=== PATIENT | male | born 1950 | race Caucasian/White ===

== ENCOUNTER 2018-02-26 11:41 | Emergency (ER) | payer MEDICARE, BC, SELFPAY ==
[2018-02-26 11:44] VITALS: BP 150/83; PULSE 91; RESP 16; TEMP 36.8; O2SAT 95; BMI 37.4
--- NOTE | 2018-02-26 11:51 | CT_ITS ---
STUDY: CT ABDOMEN AND PELVIS WITH CONTRAST REASON FOR EXAM: Male, 67 years old. Bilateral flank pain RADIATION DOSAGE (If Supplied By Facility): CTDIvol = ( 18.79 ) mGy, DLP = ( 1489.75 ) mGycm TECHNIQUE: Transaxial images were obtained from the dome of the diaphragm to the symphysis pubis without oral contrast. 100CC ml of Isovue 300 contrast was administered. Sagittal and coronal images were reconstructed. Individualized dose optimization techniques were used for this CT. COMPARISON: None. FINDINGS: The visualized lung bases are unremarkable. There are few small normal size mediastinal nodes. The visualized portions of the heart are within normal limits. There is mild diffuse fatty infiltration of the liver. There is non-visualization of the gallbladder, which may be secondary to either contraction or a prior cholecystectomy. The spleen is moderately enlarged. There are low-density lesions in the superior aspect of the spleen, the largest measures about 1.9 cm which could represent small cysts better evaluated by ultrasound. Normal pancreas. Normal bilateral adrenal glands. Normal right kidney. Normal left kidney. There is thickening of the gastric wall. There is mild thickening of the duodenum with mild stranding in the mesenteric fat. There is no evidence of small bowel obstruction. There is fecal retention. There is non-visualization of the appendix. There is nonspecific mild mesenteric stranding. There is diffuse atherosclerotic calcification of the abdominal aorta, without a demonstrated aneurysm. Normal inferior vena cava. Normal retroperitoneum. The urinary bladder is not well-distended. The prostate is slightly prominent. There are small bilateral inguinal hernias containing fat. There are diffuse degenerative changes of the visualized lumbar spine. CT/Abdomen/Pelvis W IV Cont ONLY IMPRESSION: Fatty infiltration of the liver. Splenomegaly. Small splenic lesions which could be due to small cysts. Correlation with ultrasound is recommended. Thickening of the gastric wall and descending duodenum with mesenteric stranding which could be due to gastritis and duodenitis. Nonspecific diffuse mesenteric stranding. Early inflammatory process cannot excluded. Nonvisualization of the appendix. Electronically Signed: Luis Edwards MD at 13:15 EDT Tel , Service support ,
--- NOTE | 2018-02-26 11:54 | ED.DCSUM_ITS ---
- ER Visit Summary Date of Service: 02/26/18 Chief Complaint: Abdominal pain History of Present Illness: The patient is a 67 M presents to the emergency department with abdominal pain. Patient's been having the symptoms for the past 2 months. It does seem to be worse after eating. He states that he gets very distended and will have cramping pain in his upper abdomen, worse on the right. He has had prior cholecystectomy. He states he has been trying to avoid certain foods, but has not been able to determine what is actually causing his symptoms. He said no change in bowel habits. He has had no vomiting but has had some mild nausea. He states mostly, he just gets cramping , squeezing pain across his upper abdomen after eating. He denies any chest pain or shortness of breath. He denies any weight gain or orthopnea. 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 Physical Examination: Vital signs reviewed General: Well-nourished, well-developed Head: Normocephalic, atraumatic Eyes: Pupils equal and reactive, extraocular muscles intact Neck, supple, no lymphadenopathy Heart: Regular rate and rhythm Respiratory: No distress, clear bilaterally Abdomen: Soft, mildly tender in the right upper quadrant without rebound or guarding, nondistended, no peritoneal signs Back: Nontender Extremities: Nontender, no edema, no cords Skin: Normal color no rash Neuro: Alert and oriented, no focal or lateralizing deficits Test Results: [] Emergency Department Course and Treatment: IV was established. Patient was given fluids, Zofran, and morphine. He had total resolution of his pain. I did obtain screening labs. He does have anemia with hemoglobin of 10. Based on his MCV, it does appear to be a microcytic anemia which I feels likely more chronic. He has had no change in bowel habits. His LFTs are normal. Patient underwent CT of the abdomen and pelvis. This does show irritation and edema of the distal gastric area and the first part of the duodenum consistent with gastritis or duodenitis. There is no perforation. Patient has had symptoms for 2 months. Based on the duodenal irritation, I am highly suspicious for H pylori. He is resting comfortably. His pain is controlled. The patient has followed with Dr. Shahid in the past for colonoscopy and upper GI. I do feel that this would be appropriate, but I also feel this can safely be done as an outpatient. The patient is going to be started on PPI therapy, Carafate, and dual regimen for H pylori treatment as I do feel this will be the most important course given his persistence of symptoms. He has no evidence of bleeding. He is comfortable with this plan. The patient will be discharged home. Treatment Plan: [] Disposition: Discharge Impression: 1. Duodenitis This note was generated with [employer]atch[employer] dictation software. It may contain incorrect words, spelling, and punctuation that were not noted in review of the chart prior to signing ED Disposition - Plan for ED Patient: Chief Complaint: Abd Pain Instructions: ED PUD Vs Gastritis Prescriptions: Metronidazole [Flagyl] 500 mg PO Q8H #21 tab Doxycycline Monohydrate 100 mg PO BID #20 cap Pantoprazole Sodium [Protonix] 40 mg PO BID #28 tab Sucralfate [Carafate] 1 gm PO 4X/DAY #90 tab Referrals: Ranjeet Saravia MD [STAFF PHYSICIAN] -
[2018-02-26] MEDS: Morphine 4 MG/ML Syringe IV (12:03)
[2018-02-26] MEDS: 0.9% Normal Saline 1,000 ML 1000 ML IV (12:03)
[2018-02-26] MEDS: Ondansetron 4 MG/2 ML Vial IV (12:03)
[2018-02-26 12:04] VITALS: BP 145/70; PULSE 85; RESP 14; O2SAT 98
[2018-02-26 12:09] LABS: Absolute Lymphocyte Count 0.99 X10^3/ul (0.83-4.51); Absolute Neutrophil Count 1.7 X10^3/uL (2.0-7.7); Basophil# 0.02 X10^3/uL; Basophil% 0.6 % (0-1); Eosinophil# 0.15 X10^3/uL; Eosinophils% 4.6 % (0-5); Hematocrit 33.5 % (40-54); Hemoglobin 9.8 g/dl (13.0-16.5); Lymphocyte # 0.99 X10^3/ul (4.0); Lymphocyte % 30.1 % (19-41); Mean Corp Hgb Conc 29.3 g/gl (32-36); Mean Corpuscular Hgb 20.2 pg (27.0-32.0); Mean Corpuscular Volume 69.1 fL (80-94); Mean Platelet Vol. 8.6 fl (6.2-12.0); Monocyte% 12.2 % (0-10); Neutrophil # 1.73 X10^3/uL (2.7-7.7); Neutrophil % 52.5 % (47-70); Platelet Count 121 K/mm3 (150-450); RBC Distribution Width CV 20.9 % (11.6-14.6); RBC Distribution Width SD 52.3 fl (35.1-43.9); Red Blood Count 4.85 M/mm3 (4.6-6.2); White Blood Count 3.3 K/mm3 (4.4-11.0)
[2018-02-26 12:10] LABS: Differential Indicated SCAN CRITERIA MET; POSITIVE COUNT NO; POSITIVE DIFFERENTIAL NO; POSITIVE MORPHOLOGY YES
[2018-02-26 12:14] LABS: International Normalized Ratio 2.1; Prothrombin Time (Protime)PT. 23.8 SECONDS (11.7-14.9)
[2018-02-26 12:22] LABS: ALB/GLOB Ratio 0.7 RATIO (0.9-2.4); AST(SGOT) 29 U/L (15-37); Alanine Aminotransfer ALT/SGPT 24 U/L (16-61); Alkaline Phosphatase 98 U/L (45-117); Anion Gap 7 (5-15); BUN 13 mg/dL (7-18); BUN/Creat Ratio 16.1 RATIO (10-20); Calcium,Total 8.1 mg/dL (8.5-10.1); Chloride 110 mmol/L (98-107); Creatinine, Serum 0.81 mg/dL (0.70-1.30); EST Glomerular Filtration Rate 101 mL/min (>60); Est Glom Filt Rate - Afr Amer 122 mL/min (>60); Estimated Creatinine Clearance 97.13 ml/min; Globulin 4.1 g/dL (2.2-4.2); Glucose 156 mg/dL (74-106); Lipase 247 U/L (73-393); Potassium 3.8 mmol/L (3.5-5.1); Protein, Total 7.1 g/dL (6.4-8.2); Sodium Level 141 mmol/L (136-145)
[2018-02-26 12:30] LABS: Anisocytosis RARE
[2018-02-26 13:32] LABS: Bacteria 0 SEEN /hpf (None Seen); Mucous, Urine 0 SEEN /hpf (<or=2+); Red Blood Cells-Urine 0 SEEN /hpf (0-5); Squamous Epithelial Cells - UA 0 SEEN /hpf (0-5); White Blood Cells 0 SEEN /hpf (0-5)
[2018-02-26 13:33] LABS: Color, Urine Yellow (Yellow); Glucose, Dipstick Normal (Normal); Ketone-Dipstick Negative (Negative); Leukocyte Esterase-Dipstick 25 /ul (Negative); Nitrite-Dipstick Negative (Negative); Occult Blood-Urine 10 /ul (Negative); Protein-Dipstick 15 mg/dl (Negative); Specific Gravity, Urine 1.015 (1.002-1.030); Urine Bilirubin Dipstick Negative (Negative); Urine Clarity Clear (Clear); Urine Urobilinogen Normal (Normal)
[2018-02-26 13:56] VITALS: BP 138/78; PULSE 82; RESP 14; O2SAT 99
== END 2018-02-26 13:59 | disposition home or self-care (01) ==
PROVIDERS: Emergency Provider Emergency Medicine; Family Provider Family Medicine; PCP Family Medicine
DX: K29.80 Duodenitis without bleeding (principal); D50.9 Iron deficiency anemia, unspecified; E11.9 Type 2 diabetes mellitus without complications; E66.9 Obesity, unspecified; Z79.01 Long term (current) use of anticoagulants; Z79.84 Long term (current) use of oral hypoglycemic drugs; Z79.899 Other long term (current) drug therapy; Z86.718 Personal history of other venous thrombosis and embolism; Z90.49 Acquired absence of other specified parts of digestive tract
CPT/HCPCS: 74177; 80053; 81001; 83690; 85025; 85610; 96361; 96374; 96375; 99283; J7030; Q9967; A4216; J2405

== ENCOUNTER 2019-02-25 10:01 | Outpatient (CLI) | payer MEDICARE, BC, SELFPAY ==
[2019-02-25] VITALS (13 sets, daily range): BP systolic 90–146; BP diastolic 44–69; PULSE 85–94; RESP 16–20; TEMP 36.7–37.3; O2SAT 98–100; BMI 38.6
[2019-02-25] MEDS: Furosemide 20 MG/2 ML VIAL IV (15:31)
--- NOTE | 2019-02-25 17:20 | NURSING ---
2nd unit of PRBC infusing. Denies symptoms of reaction. Lung Sounds clear t.o. Spo2 98% on RA.
== END 2019-02-25 19:50 | disposition home or self-care (01) ==
LOC: MEDOUTP 10:04 → MS3 10:05
PROVIDERS: Family Provider Family Medicine; PCP Family Medicine; Referring Provider Internal Medicine Hematology & Oncology; Visit Provider Internal Medicine Hematology & Oncology
DX: Z51.89 Encounter for other specified aftercare (principal); D50.0 Iron deficiency anemia secondary to blood loss (chronic)
CPT/HCPCS: 36430; 86850; 86900; 86920; 86922; J7040; P9016; J1940

== ENCOUNTER → 2019-05-19 14:18 | Outpatient (CLI) | payer MEDICARE, BC, SELFPAY ==
[2019-02-25 11:28] VITALS: BMI 38.6
[2019-05-19 14:44] LABS: International Normalized Ratio 2.6
== END ==
PROVIDERS: Family Provider Family Medicine Sports Medicine; PCP Family Medicine Sports Medicine; Referring Provider Internal Medicine Hematology & Oncology; Visit Provider Internal Medicine Hematology & Oncology
DX: Z79.01 Long term (current) use of anticoagulants (principal)
CPT/HCPCS: 85610

== ENCOUNTER → 2019-12-19 17:04 | Outpatient (CLI) | payer MEDICARE, BC, SELFPAY ==
[2019-02-25 11:28] VITALS: BMI 38.6
--- NOTE | 2019-12-19 17:11 | CT_ITS ---
STUDY: CT ABDOMEN AND PELVIS WITH CONTRAST REASON FOR EXAM: Male, 69 years old. HYPERBILIRUBINEMIA -- SURG-GB,HERNIA -- SKIN CA,BLOOD CLOTTING DISORDER RADIATION DOSAGE (If Supplied By Facility): CTDIvol = ( 15.23 ) mGy, DLP = ( 1338.69 ) mGycm TECHNIQUE: Transaxial images were obtained from the dome of the diaphragm to the symphysis pubis with oral contrast. 100 mL of Isovue-300 was administered. Sagittal and coronal images were reconstructed. Individualized dose optimization techniques were used for this CT. COMPARISON: Prior abdomen and pelvic CT exam of February 26, 2018 FINDINGS: Stable mild chronic bibasilar lung changes. The visualized portions of the heart are within normal limits. There is a fairly small liver for body size with somewhat nodular surface features. The portal vein is patent. The diameter of the portal vein is 15 mm. The gallbladder has been removed. Negative for dilated bile ducts. There is splenomegaly. The coronal length of the spleen is 16.5 cm. Cystic lesions in the upper pole of the spleen are stable. There are a plethora of upper abdominal and retroperitoneal collateral venous structures. There is diffuse edematous changes of the fatty tissues of the abdomen and mesial colon of the sigmoid colon in the pelvis. There is a 1.3 cm nonenhancing low density mass protruding from the proximal pancreatic body, anterior surface that is not apparent on the preceding exam. Otherwise normal pancreas. Normal bilateral adrenal glands. Normal right kidney. 1 mm nonobstructing stone in the lower pole of the left kidney. Negative for hydronephrosis or ureteral stones. Normal visualized stomach. Normal small intestine. Normal colon. The appendix is visualized and appears normal. There is diffuse atherosclerotic calcification of the abdominal aorta, without a demonstrated aneurysm. Normal inferior vena cava. Normal retroperitoneum. Normal urinary bladder. Small bilateral fatty inguinal hernias. There are diffuse degenerative changes of the visualized lumbar spine with demineralized osseous structures. CT/Abdomen/Pelvis WITH Contrast IMPRESSION: Small liver with nodular surface features consistent with cirrhosis. Splenomegaly. Patent but dilated portal vein with a plethora of mesenteric, omental and retroperitoneal collateral venous channels and generalized edematous changes of the mesentery and other fatty tissues of the abdomen. Findings are consistent with portal hypertension. Status post cholecystectomy without biliary ductal dilatation. 1.3 cm new low density nonenhancing/probably cystic mass of the pancreas protruding from the cephalad border of the proximal pancreatic body. This was not present on the preceding exam. Recommend follow-up imaging every 2 years for 5 years and then yearly for 10 years. 1 mm nonobstructing stone in the lower pole of the left kidney. No acute bowel findings. Negative for evidence of obstruction perforation or inflammatory bowel changes. Nondistended urinary bladder. Small bilateral fatty inguinal hernias. Electronically Signed: Veronica Acharya MD at 20:02 EDT , Service support ,
== END ==
PROVIDERS: PCP Family Medicine Sports Medicine; Referring Provider Family Medicine Sports Medicine; Visit Provider Family Medicine Sports Medicine
DX: E80.6 Other disorders of bilirubin metabolism (principal)
CPT/HCPCS: 74177; Q9967; A4216

== ENCOUNTER → 2020-01-10 10:01 | Outpatient (CLI) | payer MEDICARE, BC, SELFPAY ==
[2019-02-25 11:28] VITALS: BMI 38.6
[2020-01-10 10:15] LABS: Prothrombin Time (Protime)PT. 22.9 SECONDS (11.7-14.9)
== END ==
PROVIDERS: PCP Family Medicine Sports Medicine; Visit Provider Family Medicine Sports Medicine
DX: I26.99 Other pulmonary embolism without acute cor pulmonale (principal)
CPT/HCPCS: 85610

== ENCOUNTER → 2022-02-27 | Outpatient (REF) | payer SELFPAY ==
[2022-02-27 09:17] LABS: Hematocrit 30.9 % (40-54); Hemoglobin 10.5 g/dL (13.0-16.5); Mean Corpuscular Hgb 35.2 pg (27.0-32.0); Mean Corpuscular Volume 103.7 fL (80-94); POSITIVE COUNT YES; Platelet Count 49 K/mm3 (150-450); RBC Distribution Width CV 16.5 % (11.6-14.6); RBC Distribution Width SD 60.1 fl (35.1-43.9); Red Blood Count 2.98 M/mm3 (4.6-6.2); White Blood Count 3.6 K/mm3 (4.4-11.0)
[2022-02-27 09:20] LABS: Scan Indicated on CBC? Y/N YES- FLAGS NOTED
[2022-02-27 09:25] LABS: Prothrombin Time (Protime)PT. 22.6 SECONDS (11.7-14.9)
[2022-02-27 09:26] LABS: Anion Gap 10 (5-15); BUN 15 mg/dL (7-18); BUN/Creat Ratio 7.4 RATIO (10-20); Calcium,Total 8.4 mg/dL (8.5-10.1); Chloride 108 mmol/L (98-107); Creatinine, Serum 2.04 mg/dL (0.70-1.30); EST Glomerular Filtration Rate 34 mL/min (>60); Est Glom Filt Rate - Afr Amer 42 mL/min (>60); Glucose 70 mg/dL (74-106); Potassium 3.6 mmol/L (3.5-5.1); Sodium Level 139 mmol/L (136-145)
[2022-03-03 13:05] LABS: Pathologist Review Reviewed
== END | disposition home or self-care (01) ==
LOC: OLS.ACH 05:00
PROVIDERS: PCP Family Medicine Sports Medicine; Visit Provider Family Medicine
DX: I50.9 Heart failure, unspecified (principal); K75.89 Other specified inflammatory liver diseases
CPT/HCPCS: 36415; 80048; 82140; 85027; 85610